=== PATIENT | female | born 1945 ===

== ENCOUNTER 2021-09-28 05:20 | Day surgery (SDC) | payer OTHER | END 2021-09-28 11:15 | disposition home or self-care (01) | LOC: AMB-ENDOS 05:20 | PROVIDERS: ATTEND Colon & Rectal Surgery | DX: D12.2 Benign neoplasm of ascending colon (principal); D12.3 Benign neoplasm of transverse colon; I10 Essential (primary) hypertension; K59.09 Other constipation ==